=== PATIENT | male | born 1925 | race Caucasian/White ===

== ENCOUNTER 2016-09-28 22:01 | Inpatient (IN) | payer OTHER ==
[2016-09-28] MEDS ORDERED: EPINEPHrine 1 MG/10 ML SYR IVP ONE ×6 (22:06→23:30)
[2016-09-28] MEDS ORDERED: ATROPINE SULFATE 1 MG/ML VIAL IVP ONE (22:15)
--- NOTE | 2016-09-28 22:25 | EDPHY ---
H & P - Personal History Tetanus Vaccine Date: unsure of date but knows he's had it. - Medical/Surgical History Hx Asthma: No Hx Chronic Respiratory Disease: No Hx Diabetes: No Hx Cardiac Disease: Yes Hx Renal Disease: No Hx Cirrhosis: No Hx Alcoholism: No Hx HIV/AIDS: No Hx Splenectomy or Spleen Trauma: No Other PMH: CAD, CABG, CVA - Social History Smoking Status: Never smoked Time Seen by Provider: 09/28/16 22:02 HPI/ROS: CHIEF COMPLAINT: Unresponsive, cardiac arrest. HISTORY OF PRESENT ILLNESS: This patient is a 89 year old male arriving by private vehicle with his son who reports that he became acutely unresponsive while driving home. His family initially believed that he was sleeping and heard sounds of labored breathing that they attributed to snoring. They drove him immediately to the ED upon realizing that he was unresponsive. Medical history includes coronary artery disease with bypass surgery. Patient is full code. REVIEW OF SYSTEMS: Unobtainable secondary to the patient being unresponsive (Charlie Rivera) - Physical Exam Exam: Physical exam: Gen: Unresponsive, pulseless, apneic HEENT: Eyes: Dilated and minimally responsive Mouth: Moist mucosa Neck: no JVD Chest: Apneic Heart: Heart tones as an Abd: Soft, non-tender, no guarding Ext: no edema, non-tender Skin: no rash Neuro: Unresponsive, GCS 3 (Charlie Rivera) Constitutional: Initial Vital Signs Temperature (C) 32.9 C L 09/28/16 22:04 O2 Delivery Mode Ventilator O2 (L/minute) 100 Allergies/Adverse Reactions: ezetimibe [From Zetia] Allergy (Verified 02/24/14 20:01) affected liver Dhgloro-Adm-Gpe Reductase Inhibitor Allergy (Verified 02/24/14 20:01) aching muscles Home Medications: Medication Instructions Recorded Ascorbic Acid [Vitamin C 500 mg 500 mg PO DAILY 11/13/12 (*)] Clopidogrel Bisulfate [Plavix (*)] 75 mg PO DAILY 11/13/12 Multivitamins [Multivitamin (*)] 1 each PO HS 11/13/12 Tamsulosin HCl [Flomax 0.4 MG (*)] 0.4 mg PO HS 02/24/14 C/E/Zn/Cu/OM3/DHA/EPA/LUT/ZEAX 1 each PO BID 09/03/15 [Preservision Areds 2 Softgel] Carbidopa/Levodopa 25/100Mg 1 tab PO TID 09/29/16 [Sinemet 25/100 MG (*)] Cholecalciferol (Vitamin D3) 3,000 unit PO DAILY 09/29/16 [Vitamin D3] Denosumab [Prolia] 60 mg SQ .2X YEAR 09/29/16 Herbals/Supplements -Info Only 1 ea PO DAILY 09/29/16 Metoprolol Succinate 50 mg PO DAILY 09/29/16 Medical Decision Making - Diagnostics EKG Interpretation: ECG: Acute anterior STEMI with marked ST elevations prostate precordium. (Charlie Rivera) Procedures: Procedure: Central line placement. Indication: Cardiac arrest. Verbal informed consent was not obtained secondary to clinical urgency. Full maximal sterile barrier technique was uses including cap, gown, sterile gloves, large sheet, hand washing and chlorhexidine prep. The area anesthetized with 1 % lidocaine. The right femoral vein was punctured with a 19 gauge finder needle , then a 7 Sudanese triple-lumen catheter was placed using standard Seldinger technique. There were no complications. Blood return low pressure, dark blood. The procedure was performed by myself. Procedure: Limited transthoracic echocardiogram. A limited transthoracic echocardiogram was performed and interpreted by myself for cardiac arrest. Limited transthoracic echocardiogram: The pericardium was visualized and found to be negative for pericardial fluid. Cardiac activity was limited but present. The procedure was interpreted and performed by myself, Dr. Juan Rivera. (Charlie Rivera) Procedure: Rapid sequence intubation. Indication for the procedure was cardiac arrest, respiratory failure. The patient was preoxygenated with 100% oxygen by face mask. The patient was orally endotracheally intubated under direct visualization with a 7.5 ETT. In line stabilization was performed during the procedure. Tracheal intubation was confirmed with misting on the tube; breath sounds were auscultated equally bilaterally; appropriate color change with [place] Tidal CO2 detector. Chest X-ray shows ETT in good position. The procedure was performed by myself, Dr. Fontaine. (Martha Fontaine) ED Course/Re-evaluation: 2203: Contractions started. Placed on quality assurance monitor chassis. Respiratory therapy called. Pulse ox obtained. No pulses, no blood pressure. 2204: RT at bedside. Son at bedside. BVM in place. 1 amp epinephrine administered. 2206: Contractions stopped. Patient breathing on his own. 2207: CPR resumed. Additional 1 amp epinephrine administered. 220: Contractions paused for intubation. Intubation performed by Dr. Fontaine. 2210: CPR resumed. at bedside. 2212: Contractions paused. Bedside ultrasound performed by Dr. Rivera. Cardiac activity on ultrasound with minimal squeeze. No pulses present. 2213: CPR resumed. Additional 1 amp of epinephrine administered. 2214: Contractions paused. No pulses present. CPR resumed. 2215: 1mg atropine administered. 2217: Contractions paused. Bedside ultrasound reveals cardiac activity. Weak pulses. 2218: CPR resumed. 2220: Pulse check reveals femoral and carotid pulses. Will proceed with establishment of peripheral lines and blood draws. Cardiology paged. Radiology paged for portable chest x-ray. 2224: IV established. 1L IV NS administered. 2225: X-ray at bedside. 2227: 100mcg IV epinephrine administered. 2228: Consultation with Dr. Zohaib Diop, cardiology. Consultation with Dr. 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 22:45 attempted placement of a cooling catheter in the left femoral. Initial attempt showed good blood return under ultrasound guidance. Has unable to pass the guidewire. This was re-attempted with evidence of vena puncture on ultrasound but unable to draw bloods. After discussion with Dr. Bennett the plan will be for the line to be placed in the cath lab tech. Continuing to attempt to do so at this time will delayed the patient going to the cath lab tech. I am in agreement with this.: Catheter to be placed under fluoroscopy in the cath lab tech. 23:10 patient to cath lab tech (Charlie Rivera) Critical Care Time: I spent a total of 40 minutes of critical care time in obtaining history, performing a physical exam, bedside monitoring of interventions, collecting and interpreting tests and discussion with consultants but not including time spent performing procedures. (Charlie Rivera) - Data Points Laboratory Results: Laboratory Results 09/28/16 22:19 09/28/16 22:19 09/28/16 22:19 Smear Review By Natasha KUMAR MD Medications Given: Discontinued Medications Aspirin Buffered (Aspirin Ec) 325 mg PO DAILY FEDE Stop: 03/28/17 08:59 Last Admin: 09/29/16 13:11 Dose: Not Given Atropine Sulfate (Atropine Sulfate) 1 mg IVP EDNOW ONE Stop: 09/28/16 22:16 Last Admin: 09/28/16 22:15 Dose: 1 mg Clopidogrel Bisulfate (Plavix) 600 mg PO ONCE ONE Stop: 09/29/16 00:38 Last Admin: 09/29/16 01:36 Dose: 600 mg Epinephrine HCl (Epinephrine) 1 mg IVP EDNOW ONE Stop: 09/28/16 22:07 Last Admin: 09/28/16 22:06 Dose: 1 mg Epinephrine HCl (Epinephrine) 1 mg IVP EDNOW ONE Stop: 09/28/16 22:09 Last Admin: 09/28/16 22:08 Dose: 1 mg Epinephrine HCl (Epinephrine) 1 mg IVP EDNOW ONE Stop: 09/28/16 22:14 Last Admin: 09/28/16 22:13 Dose: 1 mg Epinephrine HCl (Epinephrine) 1 mg IVP EDNOW ONE Stop: 09/28/16 22:32 Last Admin: 09/28/16 22:31 Dose: 1 mg Epinephrine HCl (Epinephrine) 0.1 mg IVP EDNOW ONE Stop: 09/28/16 23:27 Last Admin: 09/28/16 22:28 Dose: 0.1 mg Fentanyl (Sublimaze) 50 mcg IVP ONCE ONE Stop: 09/29/16 01:01 Last Admin: 09/29/16 04:30 Dose: Not Given Norepinephrine 4 mg/ Dextrose 500 mls @ 0 mls/hr IV CONT FEDE; Titrate PRN Reason: Protocol Stop: 03/27/17 22:29 Last Admin: 09/29/16 10:51 Dose: 500 mls Amiodarone HCl (Amiodarone Hcl) 200 mls @ 33.333 mls/hr IV CONT FEDE Stop: 09/29/16 07:00 Last Admin: 09/29/16 02:25 Dose: 200 mls Amiodarone HCl 300 mg/ (Dextrose) 106 mls @ 318 mls/hr IV ONCE ONE Stop: 09/29/16 00:56 Last Admin: 09/29/16 04:06 Dose: Not Given Sodium Chloride (Ns) 1,000 mls @ 0 mls/hr IV ONCE ONE PRN Reason: Wide Open Stop: 09/29/16 01:01 Last Admin: 09/29/16 04:07 Dose: Not Given Potassium Chloride (Potassium Cl 10 Meq (Premix)) 50 mls @ 50 mls/hr IV Q1 FEDE Stop: 09/29/16 12:59 Last Admin: 09/29/16 10:50 Dose: 50 mls Potassium Chloride (Potassium Cl 10 Meq (Premix)) 50 mls @ 50 mls/hr IV ONCE ONE Stop: 09/29/16 10:59 Last Admin: 09/29/16 10:25 Dose: 50 mls Potassium Chloride (Potassium Cl 20 Meq (Premix)) 50 mls @ 50 mls/hr IV Q1H FEDE Stop: 09/29/16 15:29 Last Admin: 09/29/16 14:37 Dose: 50 mls Methylnaltrexone [place] (Relistor) 12 mg SC ONCE ONE Stop: 09/29/16 10:42 Last Admin: 09/29/16 13:11 Dose: Not Given Sodium Bicarbonate (Sodium Bicarbonate) 50 meq IVP ONCE ONE Stop: 09/29/16 14:44 Last Admin: 09/29/16 15:09 Dose: 50 meq Sodium Bicarbonate (Sodium Bicarbonate) 50 meq IV ONCE ONE Stop: 09/29/16 16:01 Last Admin: 09/29/16 17:27 Dose: Not Given Departure - Departure Disposition: [facility] Inpatient Acute Clinical Impression: Cardiac arrest, STEMI (ST elevation myocardial infarction) Condition: Critical Report Scribed for: Charlie Rivera Report Scribed by: Lorna Matta Date of Report: 09/28/16 Time of Report: 22:25
--- NOTE | 2016-09-28 22:32 | CPEKG ---
Heart Rate: 118 RR Interval: 508 QRSD Interval: 122 QT Interval: 400 QTC Interval: 561 QRS [place]: -56 T Wave [place]: 119 EKG Severity - ABNORMAL ECG - EKG Impression: ATRIAL FIBRILLATION, V-RATE 75-143 EKG Impression: NONSPECIFIC IVCD WITH LAD EKG Impression: LVH WITH SECONDARY REPOLARIZATION ABNORMALITY EKG Impression: ANTERIOR INJURY, EARLY ACUTE INFARCT Electronically Signed By: Charlie Rivera 29-Sep-2016 07:10:20
[2016-09-28] MEDS: NOREPINEPHRINE BITARTRATE 4 MG in D5W 500 ML IV SCH (22:38)
[2016-09-28 22:43] LABS: ABSOLUTE NRBC COUNT 0.06 10^3/uL (0-0.01); ADD DIFF? YES; ADD MORPH? NO; ADD SCAN? NO; ATYPICAL LYMPHOCYTE FLAG 10 (0-99); FRAGMENT RBC FLAG 0 (0-99); HEMATOCRIT 42.2 % (40.0-51.0); HEMOGLOBIN 12.9 g/dL (13.7-17.5); LEFT SHIFT FLG 30 (0-99); LIPEMIA HEMOLYSIS FLAG 80 (0-99); MEAN CELL HEMOGLOBIN 28.3 pg (27.9-34.1); MEAN CELL HEMOGLOBIN CONCENTR. 30.6 g/dL (32.4-36.7); MEAN CELL VOLUME 92.5 fL (81.5-99.8); MEAN PLATELET VOLUME 9.2 fL (8.7-11.7); NRBC-AUTO% 0.6 % (0.0-0.2); PLATELET CLUMPS FLAG 20 (0-99); PLATELET COUNT 229 10^3/uL (150-400); RED BLOOD CELL COUNT 4.56 10^6/uL (4.40-6.38)
[2016-09-28 22:52] LABS: ANION GAP 18 mEq/L (8-16); CALCIUM 9.5 mg/dL (8.5-10.4); CARBON DIOXIDE 16 mEq/l (22-31); CHLORIDE 107 mEq/L (97-110); CREATININE 1.9 mg/dL (0.7-1.3); GLOMERULAR FILTRATION RATE 34; GLUCOSE 179 mg/dL (70-100); POTASSIUM 4.9 mEq/L (3.5-5.2); SODIUM 141 mEq/L (134-144)
[2016-09-28] MEDS ORDERED: LIDOCAINE 1% 30 ML SDV ONE (23:01)
[2016-09-28] MEDS ORDERED: BIVALIRUDIN 250 MG/5 ML VIAL IV ONE (23:01)
[2016-09-28] MEDS ORDERED: fentaNYL 100 MCG/2 ML INJ ONE (23:01)
[2016-09-28] MEDS ORDERED: MIDAZOLAM 2 MG/2 ML VIAL ONE (23:01)
[2016-09-28] MEDS ORDERED: IOPAMIDOL (ISOVUE-370) 150 ML BTL IV ONE (23:02)
[2016-09-28 23:03] LABS: TROPONIN I 0.019 ng/mL (0-0.034)
[2016-09-28 23:29] LABS: HYPOCHROMIA 1+; PLATELET ESTIMATE ADEQUATE (ADEQ)
[2016-09-28] MEDS ORDERED: ATROPINE SULFATE 1 MG/10 ML SYR ONE (23:30)
[2016-09-28] MEDS ORDERED: VERAPAMIL 5 MG/2 ML VIAL ONE (23:38)
[2016-09-28 23:40] LABS: BASE EXCESS -18.6 mEq/L (-2.5-2.5); BICARBONATE 12 mEq/L (22-26); MEASURED OXYGEN SATURATION 98 % (92-95); PCO2 44 mmHg (34-38); PO2 275 mmHg (65-75); TCO2 13 mEq/L (23-27)
[2016-09-28 23:43] LABS: SIMV YES
[2016-09-28 23:44] LABS: O2 CONCENTRATIION 100 % (0-100); P/F RATIO 275 RATIO; PATIENT RATE 18
[2016-09-28] MEDS ORDERED: SODIUM BICARBONATE 50 MEQ/50 ML SYR ONE (23:56)
[2016-09-29] MEDS ORDERED: AMIODARONE HCL 150 MG/100 ML BAG (1.5 MG/ML) IV ONE ×2 (00:04→00:07)
[2016-09-29 00:11] LABS: BASE EXCESS -12.3 mEq/L (-2.5-2.5); BICARBONATE 15 mEq/L (22-26); HEMOGLOBIN ABG 10.6 gm/dL (14.5-17.3); IONIZED CALCIUM 1.13 MMOL/L (1.12-1.30); MEASURED OXYGEN SATURATION 99 % (92-95); PCO2 39 mmHg (34-38); PO2 390 mmHg (65-75); SODIUM ABG 137 mEq/L (137-146); TCO2 16 mEq/L (23-27)
[2016-09-29 00:16] LABS: O2 CONCENTRATIION 100 % (0-100); P/F RATIO 390 RATIO; PATIENT RATE 24; SIMV YES
[2016-09-29] MEDS ORDERED: SODIUM BICARBONATE 50 MEQ/50 ML SYR ONE (00:26)
[2016-09-29] MEDS ORDERED: PROTOCOL MAGNESIUM 1 DOSE IV PRN ×2 (00:37→01:00)
[2016-09-29] MEDS ORDERED: ATROPINE SULFATE 1 MG/10 ML SYR IVP PRN (00:37)
[2016-09-29] MEDS ORDERED: CLOPIDOGREL BISULFATE 75 MG TAB PO ONE (00:37)
[2016-09-29] MEDS ORDERED: PROTOCOL POTASSIUM 1 DOSE MISC PRN ×2 (00:37→01:00)
[2016-09-29] MEDS ORDERED: ONDANSETRON 4 MG/2 ML VIAL IVP PRN (00:37)
[2016-09-29] MEDS ORDERED: LORazepam 2 MG/ML INJ IVP PRN (00:37)
[2016-09-29] MEDS ORDERED: AMIODARONE HCL 300 MG in D5W 100 ML IV ONE (00:37)
[2016-09-29] MEDS ORDERED: CLOPIDOGREL BISULFATE 75 MG TAB ONE (00:42)
[2016-09-29] MEDS ORDERED: NS 1,000 ML IV SCH ×2 (00:45→01:00)
[2016-09-29] MEDS ORDERED: fentaNYL/NACL 100 ML IV SCH (01:00)
[2016-09-29] MEDS ORDERED: MIDAZOLAM HCL 50 MG in D5W 50 ML IV PRN (01:00)
[2016-09-29] MEDS ORDERED: NS 1,000 ML IV ONE (01:00)
[2016-09-29] MEDS ORDERED: SODIUM CHLORIDE IV SCH (01:00)
[2016-09-29] MEDS ORDERED: fentaNYL 100 MCG/2 ML INJ IVP ONE (01:00)
[2016-09-29] MEDS ORDERED: FENTANYL 1000 MCG IV SCH (01:00)
[2016-09-29] MEDS ORDERED: niCARdipine/NACL 200 ML IV PRN (01:00)
[2016-09-29] MEDS ORDERED: MIDAZOLAM 2 MG/2 ML VIAL IVP PRN (01:00)
[2016-09-29] MEDS ORDERED: NOREPINEPHRINE BITARTRATE 4 MG in D5W 500 ML IV PRN (01:00)
[2016-09-29] MEDS ORDERED: NS 250 ML IV PRN (01:00)
[2016-09-29] MEDS ORDERED: D50W 25 GM/50 ML SYR IVP PRN (02:00)
[2016-09-29] MEDS ORDERED: D5W 1,000 ML IV SCH (02:00)
[2016-09-29] MEDS: AMIODARONE HCL 200 ML IV SCH ×4 (02:00→22:22)
[2016-09-29 02:02] LABS: BASE EXCESS -11.9 mEq/L (-2.5-2.5); BICARBONATE 15 mEq/L (22-26); IONIZED CALCIUM 1.17 MMOL/L (1.12-1.30); MEASURED OXYGEN SATURATION 98 % (92-95); PCO2 38 mmHg (34-38); PO2 136 mmHg (65-75); TCO2 16 mEq/L (23-27)
[2016-09-29 02:21] LABS: MIXED VENOUS O2 SATURATION 71 % (65-75)
[2016-09-29] MEDS: PROPOFOL/EMULSION 100 ML IV SCH ×2 (02:24→21:27)
[2016-09-29] MEDS: VECURONIUM BROMIDE 50 MG in D5W 50 ML IV SCH ×3 (02:25→21:09)
[2016-09-29 02:35] LABS: ALBUMIN 2.7 g/dL (3.5-5.0); ANION GAP 17 mEq/L (8-16); ASPARTATE AMINOTRANSFERASE 650 IU/L (17-59); CARBON DIOXIDE 16 mEq/l (22-31); CHLORIDE 105 mEq/L (97-110); CREATININE 1.8 mg/dL (0.7-1.3); FIBRINOGEN 236 mg/dL (214-456); GLOMERULAR FILTRATION RATE 36; GLUCOSE 248 mg/dL (70-100); MAGNESIUM 2.3 mg/dL (1.6-2.3); POTASSIUM 4.3 mEq/L (3.5-5.2); SODIUM 138 mEq/L (134-144)
[2016-09-29 02:46] LABS: PROTIME(PATIENT) 58.7 SEC (12.0-15.0)
[2016-09-29 02:47] LABS: CK-MB INTERPRETATION POSITIVE (NEGATIVE)
[2016-09-29 02:48] LABS: PHENCYCLIDINE URINE BCH < 6 ng/ml (NEGATIVE); PHENCYCLIDINE URINE BCH NEGATIVE (NEGATIVE); TETRAHYDROCANNABINOL URINE < 5 ng/mL (NEGATIVE); TETRAHYDROCANNABINOL URINE NEGATIVE (NEGATIVE)
[2016-09-29 02:54] LABS: INR 6.52 (0.83-1.16)
[2016-09-29] MEDS ORDERED: SODIUM BICARBONATE 150 MEQ in D5W 1,000 ML IV SCH ×2 (03:35→16:30)
[2016-09-29] MEDS ORDERED: PETROLAT,WHT/MIN OIL/SOD CHL 3.5 GM OPHT.OINT EACHEYE PRN (04:00)
[2016-09-29 04:03] LABS: INR 3.79 (0.83-1.16)
--- NOTE | 2016-09-29 04:27 | CPIP ---
DATE OF PROCEDURE: 09/28/2016 INDICATION: 89-year-old man with resuscitated cardiac arrest and evidence for SM-nbxwvsu-pqycxqhao myocardial infarction, previous bypass surgery, and known graft failure. PROCEDURES PERFORMED: 1. Right and left heart catheterization, with left ventricular, selective coronary and saphenous ve in graft angiography. 2. Placement of intra-aortic balloon pump. 3. Percutaneous intervention with placement of 3 overlapping drug-eluting stents in saphenous vein graft to left anterior descending coronary artery. 4. Placement of HACA venous access catheter in the left femoral vein. 5. Placement of oximetric Unity-Baltazar catheter via right femoral vein. 6. DC synchronized cardioversion x2. DESCRIPTION: The patient was in the emergency department, having been brought in with pulseless simeon ctrical activity and intermittent asystole, and had return of spontaneous circulation, following CPR and ACLS. EKG demonstrated atrial fibrillation with ST-segment elevation consistent with anterior myocardial infarction. The patient had been in reasonably good health for his age prior to this. C ardiac alert/consultation was called. I discussed the findings and prognosis with the and son. Risks, benefits, and alternatives were discussed, and informed consent was obtained. The family f elt that given the uncertain prognosis and the patient's relatively good health prior to this acute event, that for the time being, maximal effort at caring for the patient should be undertaken. Ther efore, the patient was brought to the catheterization laboratory where both groins were sterilely pr epped and draped. Patient did have a triple-lumen that was placed in the right femoral vein inferio rly in the ER by the emergency room physician. Both groins were anesthetized with lidocaine. A 7-F rench hemostatic sheath was placed in the right femoral artery and 6-Filipino sheath in the right femo ral vein utilizing modified Seldinger technique. An 8-Filipino intra-aortic balloon pump sheath was p laced in the left femoral artery utilizing modified Seldinger technique. Due to ongoing hypotension , requiring high-dose epinephrine, a 40 cc intra-aortic balloon pump was placed via the left femoral artery. Previous angiograms had been reviewed. It appeared to me as though the likely culprit les ion was going to be the saphenous vein graft to the LAD. Therefore, our initial catheter for angiog italo was a 7-Filipino LCB catheter. This was engaged into the vein graft to the LAD and, indeed, thi s was the culprit lesion with long subtotal occlusion and slow antegrade flow. Angiomax was adminis tered. Prowater J guidewire was placed out distally, and a 4 x 32 mm Synergy stent was placed to co alejandro the main lesion to 16 and then 18 atmospheres. Angiography showed significant improvement in fl ow, but a persistent lesion distal to the stent. Therefore, a second stent, which was a 4 x 24 mm S ynergy drug-eluting stent was placed in an overlapping fashion to 18 and 20 atmospheres. Low-dose i ntragraft verapamil was administered and angiography was performed. Wire was removed and when ortho gonal angiogram was performed, it became clear that there was still a more proximal lesion at the os tium of the graft. Therefore, the Prowater J-wire was placed distally again, and a 4 x 16 mm Synerg y stent was placed in a proximal overlapping fashion to 20 atmospheres. Again, verapamil was admini stered and orthogonal angiography was then performed. At this point, further angiography was performed on other vessels. An RCB 6-Filipino diagnostic prem ter was used to engage the saphenous vein graft to the right coronary artery/PDA. A 6-Filipino JL4 ca theter was utilized for orthogonal angiograms of the [place] left system. Later in the procedure, a pigtail catheter was utilized for left heart catheterization and left ventricular angiogram, using a limited amount of contrast. Attention was then turned to placing the HACA catheter in the left femoral vein. An attempt had bee n made by the emergency room physician, but there was difficulty with passing the guidewire. I had the same difficulty, and venography was performed via a 6-Filipino dilator showing that the wire kept passing into a large branch iliac vein. Therefore, under fluoroscopy, the wire was placed into the inferior vena cava and the multi-lumen HACA catheter was placed without difficulty. Of note, due to hypotension, the patient had been cardioverted once. It was unclear how long he had been in atrial fibrillation. Last EKG, in the hospital chart, showed sinus rhythm from last year. We also began amiodarone bolus and drip. A second cardioversion was performed later in the procedure, but patient did not maintain sinus rhythm. At this point, oximetric Unity-Baltazar catheter was placed. The 6-Filipino venous sheath on the right was exchanged for an 8.5-Filipino sheath, and the oximetric Unity-Baltazar catheter was placed. Saturations w ere obtained. The mixed venous saturation was quite high. Therefore, a right atrial saturation was also obtained to rule out VSD (even though the hemodynamics did not suggest VSD), and this saturati on was also high. At this point in time, all catheters were secured in place and patient was sent t o the ICU in critical condition. FINDINGS: HEMODYNAMICS: Initial arterial pressure in the aorta 61/36, mean of 42. Later in the pr ocedure, 82/40, mean of 55. This was following reperfusion. Right atrial mean pressure of 17, right ventricular pressure of 47/16, end-diastolic pulmonary arter y pressure 45/25, mean of 33. Pulmonary capillary wedge pressure mean of 21, without significant V- wave. Left ventricular pressure 73/21, end-diastolic without pullback gradient across the aortic va lve. SATURATIONS: Main pulmonary artery 89%. Right atrium 90%. Right femoral artery 98%. Assumed Amy cardiac output 16 L/min, with a cardiac index of 8.9 L/min per squared m. LEFT VENTRICLE: The left ventricle is normal in size and shape. There is mild anterior wall hypoki nesis following reperfusion. Ejection fraction is at least 50%. There are no filling defects or si gnificant mitral regurgitation noted. ANGIOGRAPHY: Left main: The left main is a large bifurcating vessel with severe distal disease, un changed from 2012. Circumflex: The circumflex is nondominant and totally occluded proximally with bridging collaterals to a severely diseased obtuse marginal and small posterolateral. These only fill minimally and are not changed from 2012. The graft to the circumflex system is known to be occluded. Left anterior descending: The left anterior descending gives rise to a large, severely diseased, di agonal branch. 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 The graft, which I believe is the BECKFORD graft to this diagonal, is totally occluded. The diagonal fills by antegrade filling a nd is unchanged from 2012. The distal LAD fills via the vein graft. This vessel is severely diseas ed distal to the graft anastomosis and also proximal to the graft anastomosis, where it retrofills i nto a second substantial diagonal branch. There is at least 70% disease in the LAD beyond the graft anastomosis. Right coronary artery: The right coronary is known to be totally occluded proximally. This fills v ia the vein graft. The right coronary is dominant and consists of a large posterior descending and large multibranching posterolateral. The vein graft anastomosed to the mid PDA. There are also rubio e evrcq-gy-rleg collaterals, mainly to the circumflex system. GRAFT ANGIOGRAPHY: The saphenous vein graft to the right coronary has diffuse proximal disease, but is widely patent. The saphenous vein graft to the left anterior descending has proximal subtotal o cclusion over a relatively long segment with slow antegrade flow (CHERIE grade 2). PERCUTANEOUS INTERVENTION: Following placement of 3 drug-eluting stents in an overlapping fashion, there is an excellent result in the vein graft to the LAD with restored normal antegrade flow, with no residual stenosis. OVERALL IMPRESSION: 1. Severe hypotension post arrest and likely cardiogenic shock, treated with pressors and intra-aor tic balloon pump. 2. Acute myocardial infarction due to vein graft failure in the left anterior descending to sapheno us vein graft as described above. Successfully treated with 3 overlapping drug-eluting stents in th e proximal graft with excellent result. 3. Patency of right coronary artery vein graft with diffuse proximal disease of this graft. 4. 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 5. Severe [place] 3-vessel coronary artery disease including left main disease. 6. Successful placement of intra-aortic balloon pump. 7. Successful placement of HACA catheter. 8. Moderate pulmonary hypertension and elevation of filling pressures. 9. Status post cardiac arrest. 10. Status post cardioversion of atrial fibrillation attempt x2, ultimately unsuccessful. PLAN: 1. ICU admission. 2. HACA protocol. 3. Maximal supportive care. 4. Dual anti-platelet therapy. Patient already on aspirin and Plavix. 5. Echocardiography CELIO. 6. Treat metabolic acidosis (patient did receive bicarbonate 2 amps in the procedure). 7. Patient prognosis is guarded. This was discussed at length with the family. /[id number]/MODL
--- NOTE | 2016-09-29 04:45 | CPEKG ---
Heart Rate: 65 RR Interval: 923 P-R Interval: 180 QRSD Interval: 102 QT Interval: 456 QTC Interval: 475 P [place]: 41 QRS [place]: 89 T Wave [place]: -86 EKG Severity - ABNORMAL ECG - EKG Impression: SINUS RHYTHM EKG Impression: BORDERLINE RIGHT AXIS DEVIATION EKG Impression: NONSPECIFIC REPOL ABNORMALITY, DIFFUSE LEADS Electronically Signed By: Jv Johnson 29-Sep-2016 21:05:11
[2016-09-29 05:26] LABS: % IMMATURE GRANULYOCYTES 0.5 % (0.0-1.1); ABSOLUTE IMMATURE GRANULOCYTES 0.11 10^3/uL (0.00-0.10); ADD DIFF? NO; ADD MORPH? NO; ADD SCAN? NO; ATYPICAL LYMPHOCYTE FLAG 0 (0-99); FRAGMENT RBC FLAG 0 (0-99); HEMATOCRIT 36.4 % (40.0-51.0); HEMOGLOBIN 11.9 g/dL (13.7-17.5); LEFT SHIFT FLG 70 (0-99); LIPEMIA HEMOLYSIS FLAG 80 (0-99); MEAN CELL HEMOGLOBIN 28.4 pg (27.9-34.1); MEAN CELL HEMOGLOBIN CONCENTR. 32.7 g/dL (32.4-36.7); MEAN CELL VOLUME 86.9 fL (81.5-99.8); MEAN PLATELET VOLUME 9.2 fL (8.7-11.7); PLATELET CLUMPS FLAG 0 (0-99); PLATELET COUNT 215 10^3/uL (150-400); RED BLOOD CELL COUNT 4.19 10^6/uL (4.40-6.38); RED CELL DISTRIBUTION WIDTH 15.5 % (11.5-15.2)
[2016-09-29 06:01] LABS: ALANINE AMINOTRANSFERASE 154 IU/L (21-72); ALBUMIN 2.7 g/dL (3.5-5.0); ALKALINE PHOSPHATASE 216 IU/L (38-126); ANION GAP 17 mEq/L (8-16); ASPARTATE AMINOTRANSFERASE 692 IU/L (17-59); BILIRUBIN,TOTAL 0.7 mg/dL (0.1-1.4); BILIRUBIN-CONJUGATED 0.6 mg/dL (0.0-0.5); BILIRUBIN-UNCONJUGATED 0.1 mg/dL (0.0-1.1); CARBON DIOXIDE 15 mEq/l (22-31); CHLORIDE 107 mEq/L (97-110); CHOLESTEROL 103 mg/dL (140-220); CHOLESTEROL/HDL RATIO 3.12 RATIO (1.00-4.97); CREATININE 1.9 mg/dL (0.7-1.3); GLOMERULAR FILTRATION RATE 34; GLUCOSE 294 mg/dL (70-100); HIGH DENSITY LIPOPROTEIN 33 mg/dL (40-65); LDL/HDL RATIO 1.42 RATIO (1.00-3.64); LOW DENSITY LIPOPROTEIN 47 mg/dL (80-100); MAGNESIUM 2.3 mg/dL (1.6-2.3); NON-HIGH DENSITY LIPOPROTEIN 70 mg/dL (90-129); POTASSIUM 3.3 mEq/L (3.5-5.2); SODIUM 139 mEq/L (134-144); TOTAL PROTEIN 5.5 g/dL (6.3-8.2); TRIGLYCERIDE 115 mg/dL (40-150); VERY LOW DENSITY LIPOPROTEINS 23 mg/dL (8-25)
[2016-09-29 06:37] LABS: LACTATE DEHYDROGENASE 4016 IU/L (313-618)
[2016-09-29 07:35] LABS: BASE EXCESS -11.6 mEq/L (-2.5-2.5); BICARBONATE 14 mEq/L (22-26); MEASURED OXYGEN SATURATION 94 % (92-95); PCO2 32 mmHg (34-38); PO2 82 mmHg (65-75); TCO2 15 mEq/L (23-27)
[2016-09-29 07:38] LABS: END TIDAL CO2 21; O2 CONCENTRATIION 60 % (0-100); P/F RATIO 137 RATIO; PRESSURE SUPPORT 7; SIMV YES
[2016-09-29] MEDS ORDERED: ASPIRIN EC 325 MG TAB PO SCH (09:00)
[2016-09-29 09:54] LABS: POTASSIUM 2.7 mEq/L (3.5-5.2)
[2016-09-29] MEDS ORDERED: POTASSIUM Cl (KCl) 50 ML IV ONE ×2 (10:00→21:06)
[2016-09-29] MEDS: POTASSIUM Cl (KCl) 50 ML IV SCH ×7 (10:25→18:39)
[2016-09-29] MEDS ORDERED: METHYLNALTREXONE BROMIDE 12 MG/0.6 ML INJ SC ONE (10:41)
[2016-09-29] MEDS: NOREPINEPHRINE BITARTRATE 4 MG in D5W 500 ML IV SCH (10:51)
[2016-09-29] MEDS: NOREPINEPHRINE BITARTRATE 4 MG in D5W 500 ML IV PRN ×2 (10:52→21:09)
[2016-09-29] MEDS: FENTANYL 1000 MCG IV SCH ×2 (10:53→21:09)
[2016-09-29] MEDS: SODIUM CHLORIDE IV SCH ×2 (10:53→21:09)
[2016-09-29] MEDS: INSULIN REGULAR HUMAN 100 UNIT in NS 100 ML IV SCH ×2 (10:53→21:50)
[2016-09-29] MEDS ORDERED: PROPOFOL/EMULSION 1,000 MG/100 ML BOTTLE IV ONE (10:59)
[2016-09-29] MEDS: ASPIRIN RECTAL 300 MG SUPP PR SCH ×2 (11:00→11:06)
[2016-09-29 12:03] LABS: BASE EXCESS -13.3 mEq/L (-2.5-2.5); BICARBONATE 13 mEq/L (22-26); MEASURED OXYGEN SATURATION 92 % (92-95); PCO2 35 mmHg (34-38); PO2 75 mmHg (65-75); TCO2 14 mEq/L (23-27)
[2016-09-29 12:07] LABS: P/F RATIO 125 RATIO; PATIENT RATE 24; PIP 29.2; PRESSURE SUPPORT 7; SIMV YES
[2016-09-29 12:08] LABS: O2 CONCENTRATIION 60 % (0-100)
[2016-09-29 12:16] LABS: IONIZED CALCIUM 1.09 MMOL/L (1.12-1.30)
[2016-09-29 12:19] LABS: ALBUMIN 2.3 g/dL (3.5-5.0); ANION GAP 15 mEq/L (8-16); ASPARTATE AMINOTRANSFERASE 468 IU/L (17-59); CALCIUM 7.4 mg/dL (8.5-10.4); CARBON DIOXIDE 15 mEq/l (22-31); CHLORIDE 102 mEq/L (97-110); CREATININE 1.9 mg/dL (0.7-1.3); GLOMERULAR FILTRATION RATE 34; GLUCOSE 352 mg/dL (70-100); MAGNESIUM 1.9 mg/dL (1.6-2.3); POTASSIUM 3.2 mEq/L (3.5-5.2); SODIUM 132 mEq/L (134-144)
--- NOTE | 2016-09-29 12:21 | ECHO ---
[id number] + + [address] : : [place] [address] : : [phone] + Adult Echocardiographic Report + -------+ :Name: KRISTOFER ALVARADO NStudy Date: 09/29/2016 08:18 AM : : Hospital Admission Number: [id number] Locati on: 257: :: 1925 Gender: Male : :Age: 89 yrs Race: WH,White : :Reason For Study: AR/Arrest : :History: AR/ Arrest : + -------+ MMode/2D Measurements \T\ Calculations IVSd: 1.9 cm LVIDd: 4.3 cm FS: 20.6 % MV Diam: 2.0 cm LVPWd: 1.3 cm LVIDs: 3.4 cm EDV(Teich): 82.4 ml ESV(Teich): 47.5 ml EF(Teich): 42.3 % LVOT diam: 2.0 cm LVLd ap4: 5.7 cm SV(MOD-sp4): 22.0 ml EDV(MOD-sp4): 46.0 ml LVOT area: 3.0 cm2 LVLs ap4: 5.1 cm ESV(MOD-sp4): 24.0 ml EF(MOD-sp4): 47.8 % Normal Measurement Values: + + :LVIDd (3.5-5.7cm) IVSd (0.6-1.1cm) LVPWd (0.6-1.1cm) Aortic Root (2.0-3.7cm)Left Atrium (1.5-4.0cm): :LV Vol(d) (76-115ml) LV Vol(s) (29-48ml) Ejec Fraction (50-65%)PV Elieser (0.6- 1.2m/s) TV Elieser (0.4-1.0m/s) : :MV E Elieser (0.8-1.0m/s)MV A Elieser (0.3-1.0m/s)LVOT Elieser (0.7-1.2m/s) Asc Ao Elieser ( 0.9-1.8m/s) : + + Doppler Measurements \T\ Calculations MV E max elieser: MV V2 max: Ao V2 max: LV V1 mean P.0 cm/sec 84.5 cm/sec 120.8 cm/sec 2.1 mmHg MV A max elieesr: MV max P.9 mmHg Ao max PG: LV V1 mean: 73.1 cm/sec MV V2 mean: 5.8 mmHg 67.8 cm/sec MV E/A: 1.1 51.4 cm/sec Ao mean PG: LV V1 VTI: MV dec time: MV mean P.2 mmHg 3.8 mmHg 20.1 cm 0.23 sec MV V2 VTI: 28.8 cm Ao V2 mean: MV area (1 diam): 87.0 cm/sec 3.2 cm2 Ao V2 VTI: 20.2 cm MVA(VTI): 2.1 cm2 OTF(I,D): 3.0 cm2 MV Flow area(1diam): 3.2 cm2 MR max elieser: MR(RF 1 diam): SV(MV 1 diam): PA V2 max: 339.0 cm/sec 17.7 % 92.5 ml 77.6 cm/sec MR max PG: SV(LVOT): 60.0 ml PA max P.0 mmHg 2.4 mmHg PI end-d elieser: TR max elieser: RF(MV,LVOT) 130.3 cm/sec 358.3 cm/sec (1diam): 0.35 TR max P.4 mmHg Left Ventricle The left ventricle is normal in size. Proximal septal thickening is noted. Moderate concentiric LVEF. Ejection Fraction = 45-55%. There is Doppler evidence for diastolic dysfunction. Right Ventricle The right ventricle is mildly dilated. There is a catheter in the right ventricle. Mild to moderately reduced RVEF. Atria Moderate to severe LAE. No ASD or PFO noted. Mild PEREZ noted. Mitral Valve There is mild mitral annular calcification. There is no mitral valve stenosis. There is mild to moderate mitral regurgitation. Tricuspid Valve The tricuspid valve is normal in structure and function. There is no tricuspid stenosis. There is moderate tricuspid regurgitation. Aortic Valve Moderate Aortic Valve Calcification. There is no aortic stenosis. Mild AI noted. Pulmonic Valve The pulmonic valve is normal in structure and function. There is no pulmonic valvular stenosis. Mild pulmonic valvular regurgitation. Great Vessels The aortic root is normal size. Pericardium/Pleural No pericardial effusion noted. Conclusion A complete two-dimensional transthoracic echocardiogram was performed (2D, M-mode, Doppler and color flow Doppler). 1)Low normal LV systolic function with a LVEF of 45-50% with mild global hypokinesis. 2)Moderate concentric LVH with diastolic dysfunction. 3)Mild to moderately reduced RVEF. 4)Pacer wires noted in right heart chambers. 5)Moderate to severe left atrial and mild right atrial enlargement(s). 6)Aortic valve sclerosis without . Mild AI noted. 7)Mild to moderate MR without MV prolapse. 8)Moderate TR with estimated PAS 52mmHg consistent with moderate pulmonary HTN. 9)No pericardial effusion noted. Final Reading Physician: Jv Johnson electronically signed on 09/29/2016 12:20 PM Ordering Physician: CARMELLA DICKERSON Performed By: Casie Gu
[2016-09-29 12:25] LABS: % IMMATURE GRANULYOCYTES 0.4 % (0.0-1.1); ABSOLUTE IMMATURE GRANULOCYTES 0.05 10^3/uL (0.00-0.10); ADD DIFF? NO; ADD MORPH? NO; ADD SCAN? YES; ATYPICAL LYMPHOCYTE FLAG 0 (0-99); FRAGMENT RBC FLAG 0 (0-99); HEMATOCRIT 35.2 % (40.0-51.0); HEMOGLOBIN 11.2 g/dL (13.7-17.5); LIPEMIA HEMOLYSIS FLAG 80 (0-99); MEAN CELL HEMOGLOBIN 27.4 pg (27.9-34.1); MEAN CELL HEMOGLOBIN CONCENTR. 31.8 g/dL (32.4-36.7); MEAN CELL VOLUME 86.1 fL (81.5-99.8); MEAN PLATELET VOLUME 9.2 fL (8.7-11.7); PLATELET CLUMPS FLAG 0 (0-99); PLATELET COUNT 201 10^3/uL (150-400); RED BLOOD CELL COUNT 4.09 10^6/uL (4.40-6.38); RED CELL DISTRIBUTION WIDTH 15.5 % (11.5-15.2)
[2016-09-29 12:27] LABS: LEFT SHIFT FLG 100 (0-99)
[2016-09-29 12:29] LABS: INR 1.91 (0.83-1.16)
[2016-09-29 12:30] LABS: APTT 67.1 SEC (23.0-38.0)
[2016-09-29 12:46] LABS: SCAN POSITIVE
--- NOTE | 2016-09-29 12:47 | GCON ---
PULMONARY/CRITICAL CARE CONSULTATION DATE OF CONSULTATION: 09/29/2016 REFERRING PHYSICIAN: Charlie Bennett MD REASON FOR CONSULTATION: Evaluation and management of respiratory failure. HISTORY: The patient is an 89-year-old gentleman, who had dinner with his family yesterday evening. While driving home, they believed that he was sleeping but then realized that he was unresponsive, so brought him to the emergency department. His initial rhythms were PEA with some periods of asys tole. He had a total of 45 minutes of intermittent CPR during resuscitation with an intermittent, s pontaneous pulse during this time in response to drugs and CPR. He was then taken emergently to the catheterization lab by Juan Bennett, who found an occlusion of a previous bypass graft to the LAD, which was opened up with excellent result. A balloon pump was placed, and the patient was placed on the HACA protocol after he was intubated in the emergency department. The patient has been unrespo nsive since arriving in the ICU. PAST MEDICAL HISTORY: Coronary artery disease, status post CABG. MEDICATIONS ON ADMISSION: Include Plavix, Cozaar, Flomax, Tylenol, and metoprolol. ALLERGIES: Statins. SOCIAL HISTORY: The patient was brought in by his family. He never smoked and does not drink exces sively. FAMILY HISTORY: Unremarkable. REVIEW OF SYSTEMS: Unobtainable. PHYSICAL EXAMINATION: GENERAL: The patient is intubated, sedated, and on the HACA protocol. VITAL SIGNS: His blood pressure is 98/31 with a heart rate of 60. His temperature is 33 degrees on the H JOE protocol. HEENT: Normocephalic and atraumatic. No icterus. NECK: No JVD. Trachea is midlin e. CHEST: Clear to auscultation. CARDIAC: Regular rate and rhythm with an intraaortic balloon pu mp. ABDOMEN: Distended and somewhat tympanitic. Bowel sounds are absent. EXTREMITIES: No clubbi ng, cyanosis, or edema. LABORATORY: Potassium is 2.7 down from 4.3, creatinine is 1.9. AST is 692 with an ALT of 154. CP K is 506 with a 5.8% MB fraction. Troponin is 1.4. BNP is 3742. INR is 3.8, down from 6.5. Arter ial blood gas shows a pH of 7.26 with a pO2 of 82, a CO2 of 32, and a bicarbonate of 15 on IMV with a rate of 24, tidal volume of 550, and 60% oxygen. IMAGING: Chest x-ray shows interstitial shows alveolar and interstitial edema. Monitoring and supp ort devices are in appropriate position. The right diaphragm is elevated. Images reviewed. ASSESSMENT: 1. Status post out of hospital arrest. This is due to an acute myocardial infarction with occlusio n of a previous bypass graft that has subsequently been opened and kept patent with stents. The pat ient is medically stable, but requiring epinephrine and norepinephrine drips in order to maintain bl ood pressure. He is on the HACA protocol. 2. Respiratory failure. The patient is intubated due to his cardiac status, as well as the HACA pr otocol. 3. Metabolic acidosis. The patient has a persistent metabolic acidosis with partial respiratory co mpensation. This is likely to tissue ischemia at the time of his arrest. It is also possible that he has ongoing ischemia, possibly including mesenteric ischemia. 4. Hypokalemia. RECOMMENDATIONS: 1. Continue mechanical ventilation and HACA protocol. 2. Repeat blood gas, and adjust the ventilator and the patient's current bicarb drip in order to tr y to correct metabolic acidosis. 3. Follow potassium and replace as needed. Overall prognosis is guarded given the patient's age and prolonged resuscitation time. /[id number]/MODL
[2016-09-29 12:49] LABS: PLATELET ESTIMATE ADEQUATE (ADEQ)
[2016-09-29 12:57] LABS: CK-MB INTERPRETATION POSITIVE (NEGATIVE)
[2016-09-29] MEDS ORDERED: POTASSIUM Cl (KCl) 20 MEQ/50 ML BAG IV ONE (13:01)
--- NOTE | 2016-09-29 13:33 | GCON ---
INPATIENT CONSULTATION NOTE DATE OF CONSULTATION: 09/29/2016 CHIEF COMPLAINT: Suspected anoxic brain injury. HISTORY OF PRESENT ILLNESS: Dr. Bennett of the cardiology service consulted Neurology for evaluatio n of possible anoxic brain injury. Results of evaluation are placed in the EMR for his review. This is an 89-year-old male with prior history of coronary artery disease, CABG, and stroke, who is currently intubated and comatose. Review of his records states that he was with his family on September 28, 2016 riding in a car. He apparently seemed as if he went to sleep to the family. They eventual ly noticed labored breathing as if he was snoring. He was nonresponsive, so he was brought to the e mergency room. In the emergency room, it appears that he was noted to be pulseless with a non-perfu sing rhythm, so he received CPR and then was taken the director of cardiac cath lab as if he may have had an acute DC le ading to cardiac arrest and anoxic brain injury. He had return of spontaneous circulation. He has been placed in the ICU and placed on HACA protocol. He is currently intubated, paralyzed, and hypot hermic. His pupils currently are not reactive to light, but he is on a paralytic. He is not moving , nor responding to any commands. REVIEW OF SYSTEMS: Cannot be obtained due to patient's medical status. FAMILY HISTORY/SOCIAL HISTORY: Cannot be obtained due to patient's medical status. PAST MEDICAL HISTORY: Reported to be coronary artery disease, CABG, and stroke. MEDICATIONS ON ADMISSION: Noted to include Plavix, losartan, tamsulosin, Coumadin, and metoprolol. PHYSICAL EXAM: VITAL SIGNS: Blood pressure 106/34, heart rate 59, respirations 24. He is currentl y intubated and hypothermic. NEUROLOGIC: He is lying in bed, intubated and comatose. He does not r espond to any commands. His pupils are fixed and unresponsive to light. No evidence of withdrawal to pain in all 4 extremities. LABS: September 28, 2016: CBC with white blood cell count 10.16. September 29, 2016: LDL 47. IMAGING: September 28, 2016: A chest x-ray shows cardiomegaly, as well as an endotracheal tube present. I personally visualized the study. ASSESSMENT: Suspected myocardial infarction leading to cardiac arrest with loss of pulse with resul tant anoxic brain injury: It appears the patient likely had cardiac arrest from an DC and suffered significant anoxic brain injury. As the patient is currently on HACA protocol and paralyzed, I sharon ot get an adequate neurologic exam. If patient is rewarmed tomorrow and taken off paralytics, we sh ould have a good idea of prognosis. If his pupils remained fixed and unresponsive to light after be ing removed from HACA protocol though, I would suspect a very poor prognosis for significant neurolo gic recovery. However, at this time Neurology will continue to evaluate and wait for HACA protocol to end and rewarming to be completed tomorrow. This is a critically ill patient following severe anoxic brain injury from cardiac arrest. Neurolog y service will continue to follow closely. /[id number]/MODL
[2016-09-29 14:25] LABS: BASE EXCESS -14.2 mEq/L (-2.5-2.5); BICARBONATE 12 mEq/L (22-26); MEASURED OXYGEN SATURATION 92 % (92-95); PCO2 28 mmHg (34-38); PO2 72 mmHg (65-75); TCO2 13 mEq/L (23-27)
[2016-09-29 14:28] LABS: O2 CONCENTRATIION 60 % (0-100); P/F RATIO 120 RATIO; PATIENT RATE 26; PIP 31.7; PRESSURE SUPPORT 7; SIMV YES
[2016-09-29] MEDS ORDERED: SODIUM BICARBONATE 50 MEQ/50 ML SYR IVP ONE (14:43)
[2016-09-29] MEDS ORDERED: NA BICARBONATE 50 MEQ/50 ML VIAL IV ONE (16:00)
--- NOTE | 2016-09-29 16:43 | GHP ---
DATE OF ADMISSION: 09/28/2016 REFERRING PHYSICIAN: Charlie Rivera MD INDICATION: An 89-year-old man with resuscitated cardiac arrest. HISTORY OF PRESENT ILLNESS: History is obtained from the , the son, emergency room staff and old chart. The patient is intubated, and unresponsive , and unable to provide any history. There is coronary artery disease with previous bypass surgery. This was performed by Dr. Tai in 2006 with 3 saphenous vein grafts and 1 left internal mammary bypass graft. The patient apparently was asymptomatic prior to surgery, but had an abnormal calcium score , which ultimately led to angiography. I have reviewed these films from 2006, and the patient had very severe multivessel disease. For unclear reasons the patient had repeat catheterization by Dr. Tai in 2011. At that time, left internal mammary bypass graft was occluded, but the LAD was perfused via a patent saphenous vein graft. Saphenous vein graft to the circumflex was occluded, and the circumflex branch was filled from collaterals. Right coronary was totally occluded, but filled via a patent saphenous vein bypass graft. The patient otherwise had very severe diffuse disease, and no attempted intervention was made. The patient currently is followed by Dr. Franks and Dr. Prado. He apparently has been doing relatively well, able to ambulate. He has not had angina or significant dyspnea. On the night of admission, he was at the [facility] for dinner with his and son, who is visiting from [place]. He had no complaints that he verbalized. He was able to walk back to the car, and was in the backseat of the car. His family felt as though he was sleeping. When they arrived at their apartment approximately 10-15 minutes later, he was unarousable, and it was unclear to them if he was breathing. As the apartment is right down the street from [facility], he was brought directly to the Emergency Department. He apparently was found to be in pulseless electrical activity. CPR was begun. The patient was intubated and treated with advanced cardiac life support. This progress for approximately 30 minutes before return of spontaneous circulation. There was a period of intermittent asystole as well. The patient then had a 12-lead performed, demonstrating atrial fibrillation and anterior marked ST-segment elevation. At this point, the chemical lab supervisor and Cardiology were contacted. The patient had remained hemodynamically unstable, requiring high-dose Levophed and intermittent bolus epinephrine. Laboratory studies are pending. PAST MEDICAL HISTORY: Parkinson's disease, CVA status post previous cardiac catheterization, pulmonary embolism, paroxysmal atrial fibrillation, hypertension, hyperlipidemia, chronic renal insufficiency, history of carotid stenosis. CURRENT MEDICATIONS: The list is unclear. He has been on warfarin, but the family says this was discontinued fairly recently due to falls. He was then placed on Plavix. The list from the chart also states he is on Sinemet, Prolia , metoprolol, Flomax, as well as various supplements and vitamins. ALLERGIES: Statins and Zetia. SOCIAL HISTORY: He has not been a smoker or a heavy drinker. He lives with his at the [facility]. His son lives in [place] and is visiting. REVIEW OF SYSTEMS: Unobtainable. PHYSICAL EXAM: GENERAL: The patient is intubated. VITAL SIGNS: Blood pressure of 60 on Levophed and epinephrine, pulse rate is 100 and irregularly irregular. NECK: Jugular venous pressure appears to be elevated, although patient is flat. LUNGS: Breath sounds are coarse. CARDIAC: Irregularly irregular with a 1/6 systolic ejection murmur. NEURO: Pupils are fixed and dilated, and there is no response to painful stimuli. EXTREMITIES: There is no peripheral edema. LABORATORY DATA: EKG demonstrates atrial fibrillation with left ventricular hypertrophy and marked anterior ST-segment "tombstone" elevations. Chest x-ray shows cardiomegaly and pulmonary vascular congestion, with endotracheal tube in proper position, with hypoventilation and elevated right hemidiaphragm. Laboratory studies: Initial I-STAT laboratory studies demonstrate a creatinine of 1.9, CO2 of 16. Other laboratory studies are pending. IMPRESSION: 1. Resuscitated cardiac arrest with pulseless electrical activity and asystole. 2. Probable acute anterior wall myocardial infarction. 3. Coronary artery disease, status post bypass surgery with history of failed bypass grafts and severe yuhaaviatam coronary disease. I have reviewed previous films in detail. 4. Possible anoxic brain injury. 5. Hemodynamic instability. 6. History of cerebrovascular accident. 7. Chronic renal insufficiency. 8. History of pulmonary embolus. PLAN: Grave prognosis was discussed with the family, and they are understanding. Plan for now will be to go to cardiac catheterization for possible acute percutaneous intervention and other stabilizing measures. Hypothermia protocol will be initiated. Pulmonary critical care and neurology consults will be obtained. The patient's prognosis is quite poor. /[id number]/MODL MTDD
[2016-09-29 17:41] LABS: MAGNESIUM 1.6 mg/dL (1.6-2.3); POTASSIUM 3.4 mEq/L (3.5-5.2)
[2016-09-29] MEDS ORDERED: INSULIN REGULAR HUMAN 100 UNIT/ML ONE (17:41)
[2016-09-29] MEDS ORDERED: MAGNESIUM SULF 1 GM/DEXTROSE 100 ML IV ONE (17:45)
[2016-09-29] MEDS ORDERED: INSULIN REGULAR HUMAN 100 UNIT/ML IV PRN (17:53)
[2016-09-29 18:32] LABS: CK-MB INTERPRETATION POSITIVE (NEGATIVE)
[2016-09-30] MEDS: INSULIN REGULAR HUMAN 100 UNIT in NS 100 ML IV SCH ×4 (00:05→08:41)
[2016-09-30 01:01] LABS: BASE EXCESS -11.7 mEq/L (-2.5-2.5); BICARBONATE 14 mEq/L (22-26); IONIZED CALCIUM 0.96 MMOL/L (1.12-1.30); MEASURED OXYGEN SATURATION 94 % (92-95); PCO2 29 mmHg (34-38); PO2 58 mmHg (65-75); TCO2 15 mEq/L (23-27)
[2016-09-30 01:03] LABS: END TIDAL CO2 18; O2 CONCENTRATIION 80 % (0-100); P/F RATIO 73 RATIO; PATIENT RATE 26; PRESSURE SUPPORT 7; SIMV YES
[2016-09-30 01:21] LABS: % IMMATURE GRANULYOCYTES 0.4 % (0.0-1.1); ABSOLUTE IMMATURE GRANULOCYTES 0.03 10^3/uL (0.00-0.10); ADD DIFF? NO; ADD MORPH? NO; ADD SCAN? YES; ATYPICAL LYMPHOCYTE FLAG 0 (0-99); FRAGMENT RBC FLAG 0 (0-99); HEMATOCRIT 33.3 % (40.0-51.0); HEMOGLOBIN 10.9 g/dL (13.7-17.5); LIPEMIA HEMOLYSIS FLAG 80 (0-99); MEAN CELL HEMOGLOBIN 28.2 pg (27.9-34.1); MEAN CELL HEMOGLOBIN CONCENTR. 32.7 g/dL (32.4-36.7); MEAN CELL VOLUME 86.3 fL (81.5-99.8); MEAN PLATELET VOLUME 9.5 fL (8.7-11.7); PLATELET CLUMPS FLAG 10 (0-99); PLATELET COUNT 151 10^3/uL (150-400); RED BLOOD CELL COUNT 3.86 10^6/uL (4.40-6.38); RED CELL DISTRIBUTION WIDTH 15.6 % (11.5-15.2)
[2016-09-30 01:28] LABS: INR 1.74 (0.83-1.16); PROTIME(PATIENT) 20.4 SEC (12.0-15.0)
[2016-09-30 01:29] LABS: APTT 49.6 SEC (23.0-38.0)
[2016-09-30 01:32] LABS: ALBUMIN 2.5 g/dL (3.5-5.0); ANION GAP 20 mEq/L (8-16); ASPARTATE AMINOTRANSFERASE 219 IU/L (17-59); CALCIUM 6.5 mg/dL (8.5-10.4); CARBON DIOXIDE 15 mEq/l (22-31); CHLORIDE 94 mEq/L (97-110); CREATININE 1.9 mg/dL (0.7-1.3); GLOMERULAR FILTRATION RATE 34; GLUCOSE 360 mg/dL (70-100); MAGNESIUM 1.8 mg/dL (1.6-2.3); POTASSIUM 4.3 mEq/L (3.5-5.2); SODIUM 129 mEq/L (134-144)
[2016-09-30 01:36] LABS: LEFT SHIFT FLG 150 (0-99)
[2016-09-30 01:44] LABS: CK-MB INTERPRETATION POSITIVE (NEGATIVE)
[2016-09-30] MEDS ORDERED: PROTOCOL K PHOSPHATE 1 DOSE IV PRN (01:44)
[2016-09-30] MEDS ORDERED: PROTOCOL CALCIUM 1 DOSE IV PRN (01:44)
[2016-09-30] MEDS ORDERED: SODIUM BICARBONATE 50 MEQ/50 ML SYR IVP ONE (02:00)
[2016-09-30 02:38] LABS: SCAN POSITIVE
[2016-09-30] MEDS ORDERED: FUROSEMIDE 20 MG/2 ML VIAL ONE ×2 (02:38→15:52)
[2016-09-30 02:57] LABS: ELLIPTOCYTES 1+; PLATELET ESTIMATE ADEQUATE (ADEQ); SCHISTOCYTES 1+
[2016-09-30 05:11] LABS: BASE EXCESS -8.2 mEq/L (-2.5-2.5); BICARBONATE 17 mEq/L (22-26); MEASURED OXYGEN SATURATION 95 % (92-95); PCO2 31 mmHg (34-38); PO2 65 mmHg (65-75); TCO2 18 mEq/L (23-27)
[2016-09-30 05:12] LABS: SIMV YES
[2016-09-30 05:13] LABS: END TIDAL CO2 19; O2 CONCENTRATIION 80 % (0-100); P/F RATIO 81 RATIO; PATIENT RATE 26; PRESSURE SUPPORT 7
[2016-09-30 05:34] LABS: MAGNESIUM 2.1 mg/dL (1.6-2.3); POTASSIUM 4.8 mEq/L (3.5-5.2)
[2016-09-30] MEDS: NOREPINEPHRINE BITARTRATE 4 MG in D5W 500 ML IV PRN (06:31)
--- NOTE | 2016-09-30 07:49 | NEUROPROG ---
Assessment: Chart reviewed Patient still hypothermic, paralyzed and on sedative infusions. Ideally neurologic prognostication would occur 72 hours after rewarming and cessation of paralytics/sedatives - may need even longer to assess motor function given continuous paralytic infusion and shock liver/CKD. Please reconsult at that time, sooner if any other neurologic issues emerge. No charges rendered. Objective: Vital Signs Temp Pulse Resp BP Pulse Ox 34 C L 65 26 H 96/32 L 93 09/30/16 07:00 09/30/16 07:00 09/30/16 07:00 09/30/16 07:00 09/30/16 07:00 Laboratory Results 09/30/16 00:45 09/30/16 05:05 09/29/16 09/30/16 10/01/16 05:59 05:59 05:59 Intake Total 1170 8751.6 Output Total 1200 980 Balance -30 7771.6 PT 20.4 SEC (12.0-15.0) H 09/30/16 00:45 INR 1.74 (0.83-1.16) H 09/30/16 00:45 Allergies/Adverse Reactions: ezetimibe [From Zetia] Allergy (Verified 02/24/14 20:01) affected liver Klqiump-Qho-Epy Reductase Inhibitor Allergy (Verified 02/24/14 20:01) aching muscles
[2016-09-30 08:46] LABS: MAGNESIUM 1.9 mg/dL (1.6-2.3); POTASSIUM 4.2 mEq/L (3.5-5.2)
--- NOTE | 2016-09-30 08:48 | CPEKG ---
Heart Rate: 65 RR Interval: 923 P-R Interval: 212 QRSD Interval: 98 QT Interval: 548 QTC Interval: 570 P [place]: 70 QRS [place]: -29 T Wave [place]: 31 EKG Severity - ABNORMAL ECG - EKG Impression: SINUS RHYTHM EKG Impression: BORDERLINE LEFT AXIS DEVIATION EKG Impression: PROLONGED QT INTERVAL Preliminary Awaiting MD Review
[2016-09-30] MEDS ORDERED: RN MUST REMOVE K+ & MG+ PROTOCOL FROM WORKLIST AT 36 C MISC SCH (09:00)
[2016-09-30] MEDS ORDERED: CLOPIDOGREL BISULFATE 75 MG TAB TUBE SCH (09:00)
[2016-09-30] MEDS ORDERED: MAINTAIN PARALYTIC,ANALGESIA,SEDATION UNTIL TEMP IS 36C MISC SCH (09:00)
[2016-09-30] MEDS ORDERED: RN MUST ADD CA+ & PHOS PROTOCOL TO WORKLIST AT 36 C MISC SCH (09:00)
[2016-09-30 09:28] LABS: CK-MB INTERPRETATION POSITIVE (NEGATIVE)
--- NOTE | 2016-09-30 10:14 | PDCARPN ---
Cardiology Progress Note Assessment/Plan: HPI: Romero is an 89 year old man with a history of coronary artery disease s/p CABG with rSVG x 3 and BECKFORD to the LAD in 2006. He also had repeat cardiac catheterization in 2011 which revealed an occluded BECKFORD, rSVG to the left circumflex, RCA. However, the rSVG to the RCA was patent and the circumflex was filled with collaterals and intervention was not performed at this time as it would have been very high risk. The patient also has a past medical history notable for CVA s/p previous cardiac catheterization, PE, paroxysmal atrial fibrillation, hypertension, hyperlipidemia, chronic renal insufficiency and history of carotid artery stenosis. Romero presented to the emergency department with PEA and intermittent asystole with marked ST elevation in anterior leads. He had return of spontaneous circulation following CPR and ACLS and was taken urgently to the catheterization laboratory where 3 overlapping drug eluting stents were placed in an occluded LAD. Intraaortic balloon pump was placed and the HACA protocol was initiated. Assessment: 1. S/p [id number] cardiac arrest with acute myocardial infarction due to vein graft failure of the SVG to the LAD reopened with drug eluting stents x 3. Beta blockers and abel inhibitors on hold due to hypotensive. Will start when patient can tolerate. 2. HACA protocol: We will continue active rewarming at the present time and further assessment of neurologic status. As the patient is rewarmed the risk of bleeding will be lower and full-dose anticoagulation may be required if the IABP is to remain in place. 3. Cariogenic shock currently on multiple pressors 4. Intraaortic balloon pump in place current 1:1 assist 5. Acute respiratory failure with pulmonary edema 6. Stable H&H 7. Platelet count decreased, probably due to antiplatelet therapy and IABP. Monitor closely. 8. PAF, currently in sinus rhythm on Amiodarone drip. I discussed with the family that the patient's prognosis is guarded at the present time. We will continue pressors and other support at the present time until further neurologic assessment is feasible. Subjective: intubated, sedated Reviewed/Discussed With: family, hospitalist, multidisciplinary team Time Spent With Patient: 15 minutes discussing care with the family Objective: Vital Signs (8 Hrs) Temp Pulse Resp BP Pulse Ox 09/30/16 09:00 34.3 C L 65 26 H 109/34 L 93 09/30/16 08:05 62 61 H 112/42 L 93 09/30/16 08:00 34.2 C L 64 26 H 108/70 92 09/30/16 07:00 34 C L 65 26 H 96/32 L 93 09/30/16 06:00 33.8 C L 61 26 H 106/38 L 97 09/30/16 05:00 33.6 C L 58 L 26 H 93/34 L 98 09/30/16 04:00 33.4 C L 63 26 H 98/34 L 96 09/30/16 03:00 33.2 C L 62 26 H 106/36 L 99 Intake/Output (24 Hrs) 09/29/16 09/30/16 10/01/16 05:59 05:59 05:59 Intake Total 1170 8751.6 Output Total 1200 980 Balance -30 7771.6 Intake: Oral (ml) 0 IV Intake (ml) 1170 1356 IV Infused (ml) 7395.6 Amiodarone HCl 200 ml @ 710 33.333 mls/hr IV CONT FEDE Rx#:[id number] EPINEPHrine 1 mg In D5w 1384 250 ml @ Titrate IV CONT FEDE Rx#:[id number] Insulin Regular Human 100 628 unit In Ns 100 ml @ As Directed IV AD FEDE Rx#: [id number] Norepinephrine Bitartrate 1657 4 mg In D5w 500 ml @ Per Protocol IV CONT PRN Rx# :[id number] Propofol/Emulsion 100 ml 81.3 @ Per Protocol IV CONT FEDE Rx#:[id number] Sodium Bicarbonate 150 2819 meq In D5w 1,000 ml @ 100 mls/hr IV CONT FEDE Rx#: [id number] Vecuronium [place] 50 mg 68.5 In D5w 50 ml @ Per Protocol IV CONT FEDE Rx#: [id number] fentaNYL 1,000 mcg In Ns 47.8 100 ml @ Per Protocol IV CONT FEDE Rx#:[id number] Output: Urine (ml) 1200 270 Catheter 1200 270 OG Drainage (ml) 710 Large Bore (>12 Salv[place]) 710 Other: Weight 65 kg 75.4 kg Result Diagrams: 09/30/16 12:15 09/30/16 12:15 Cardiac Labs: Cardiac Lab Results (72 Hrs) 09/30/16 09/30/1617 08:15 00:45 17:10 CK-MB (CK-2) Fraction 41.40 H 44.10 H 52.60 H Troponin I 2.080 H 2.370 H 3.710 H 09/29/16 09/29/16 12:00 01:45 CK-MB (CK-2) Fraction 51.70 H 29.10 H Troponin I 4.330 H 1.420 H - Physical Exam Constitutional: other (sedated, intubated) ICD10 Worksheet Patient Problems: Problems Problem Status Onset CVA - cerebrovascular accident due to cerebral artery occlusion Active CAD - Coronary arteriosclerosis Active Atrial fibrillation and flutter Active Benign hypertension Active Left acetabular fracture Acute Cardiac arrest Acute STEMI (ST elevation myocardial infarction) Acute
--- NOTE | 2016-09-30 11:22 | PDINTPN ---
Sew On Operator Progress Note Assessment/Plan: Assessment: Status post [id number] cardiac arrest with prolonged resuscitation HACA protocol: Rewarming in progress. Still on vecuronium until temperature comes up. On propofol and fentanyl as well. Cardiogenic shock: On multiple pressors, prognosis guarded Acute respiratory failure with pulmonary edema Discussed with the patient's son and . We will wait until full rewarming occurs and then make decisions from there. I anticipate that this is not going to be a survival of vent. Withdrawal of care may be indicated. Plan: Continue supportive care to per the HACA protocol. Continue pressors and bicarbonates. Wean vecuronium once the patient has been really warmed. Electrolyte replacement per protocols. Follow clinical and neurologic status. 45 minutes of critical care time spent directly with the patient this morning. Discussed with the patient's family, nursing, respiratory, and the ICU multi disciplinary team. Addendum: Approximately 4:30PM the patient became more hypoxemic, bradycardic and hypotensive. His son and are at his bedside and request nothing further be done. Intra-aortic balloon pump was stopped, supportive drips have been stopped. They request that the patient be extubated and allow natural . Subjective: Unresponsive, on the ventilator with pulmonary edema in his endotracheal tube. On multiple pressors, bicarbonate, vecuronium, propofol, and fentanyl Objective: Vital Signs Temp Pulse Resp BP Pulse Ox 34.7 C L 66 26 H 109/36 L 91 L 09/30/16 11:00 09/30/16 11:00 09/30/16 11:00 09/30/16 11:00 09/30/16 11:00 Laboratory Results 09/30/16 00:45 09/30/16 08:15 09/29/16 09/30/16 10/01/16 05:59 05:59 05:59 Intake Total 1170 8751.6 Output Total 1200 980 Balance -30 7771.6 PT 20.4 SEC (12.0-15.0) H 09/30/16 00:45 INR 1.74 (0.83-1.16) H 09/30/16 00:45 Laboratory Tests 09/30/16 09/30/16 09/30/16 05:05 06:03 08:15 PT INR APTT pCO2 31 L pO2 65 Total CO2 18 L ABG pH 7.34 L ABG O2 Saturation 95 O2 Concentration % 80 Actual Respiration Rate 26 SIMV YES Tidal Volume 600 PEEP 5 Pressure Support 7 POC Sodium POC Potassium POC Chloride Bicarbonate 17 L POC BUN POC Creatinine POC Glucose 201 H Magnesium Creatine Kinase 584 H CK-MB (CK-2) Fraction 41.40 H CK-MB (CK-2) % 7.1 H Creatine Kinase Interp POSITIVE H Troponin I 2.080 H CXR: Bilateral pulmonary infiltrates, worse on the left, slightly better at the right base. Lines and tubes in good position. Physical Exam - Physical Exam General Appearance: unresponsive, other (On ventilator, rewarming with a temperature of approximately 35 degrees currently) EENT: ET tube (With bloody frothy secretions consistent with severe pulmonary edema), other (NG tube in place), No PERRL/EOMI (Pupils fixed, approximately 4 mm) Neck: normal inspection (Jugular venous pressure elevated) Respiratory: decreased breath sounds, rales, rhonchi, No lungs clear, No normal breath sounds Cardiac/Chest: regular rate, rhythm, other (Distant heart tones) Abdomen: distended, No normal bowel sounds (Absent currently) Male Genitalia: other (Deal catheter in place: Input over 7 L greater than output last 24 hours) Skin: warm/dry, mottled, pallor, No normal color Extremities: pedal edema (Trace +) Neuro/Psych: cognition abnormalities (Can't assess), No no motor/sensory deficits (Can't assess) ICD10 Worksheet Patient Problems: Problems Problem Status Onset CVA - cerebrovascular accident due to cerebral artery occlusion Active CAD - Coronary arteriosclerosis Active Atrial fibrillation and flutter Active Benign hypertension Active Left acetabular fracture Acute Cardiac arrest Acute STEMI (ST elevation myocardial infarction) Acute
[2016-09-30] MEDS: AMIODARONE HCL 200 ML IV SCH (11:50)
[2016-09-30] MEDS ORDERED: K PHOS 15 MMOL in D5W 250 ML IV ONE (12:00)
[2016-09-30 12:25] LABS: BASE EXCESS -5.6 mEq/L (-2.5-2.5); BICARBONATE 20 mEq/L (22-26); IONIZED CALCIUM 0.88 MMOL/L (1.12-1.30); MEASURED OXYGEN SATURATION 91 % (92-95); PCO2 43 mmHg (34-38); PO2 62 mmHg (65-75); TCO2 22 mEq/L (23-27)
[2016-09-30 12:29] LABS: ADD SCAN? YES; ATYPICAL LYMPHOCYTE FLAG 0 (0-99); FRAGMENT RBC FLAG 0 (0-99); HEMATOCRIT 33.7 % (40.0-51.0); HEMOGLOBIN 11.3 g/dL (13.7-17.5); LIPEMIA HEMOLYSIS FLAG 80 (0-99); MEAN CELL HEMOGLOBIN CONCENTR. 33.5 g/dL (32.4-36.7); MEAN CELL VOLUME 83.6 fL (81.5-99.8); MEAN PLATELET VOLUME 9.2 fL (8.7-11.7); PATIENT RATE 26; PLATELET CLUMPS FLAG 0 (0-99); PLATELET COUNT 123 10^3/uL (150-400); PRESSURE SUPPORT 7; RED BLOOD CELL COUNT 4.03 10^6/uL (4.40-6.38); RED CELL DISTRIBUTION WIDTH 15.5 % (11.5-15.2); SIMV YES
[2016-09-30 12:30] LABS: END TIDAL CO2 26; O2 CONCENTRATIION 90 % (0-100); P/F RATIO 69 RATIO; PIP 59.4
[2016-09-30 12:33] LABS: LEFT SHIFT FLG 300 (0-99)
[2016-09-30 12:45] LABS: ALBUMIN 2.1 g/dL (3.5-5.0); ANION GAP 14 mEq/L (8-16); ASPARTATE AMINOTRANSFERASE 162 IU/L (17-59); CARBON DIOXIDE 21 mEq/l (22-31); CHLORIDE 91 mEq/L (97-110); CREATININE 1.9 mg/dL (0.7-1.3); GLOMERULAR FILTRATION RATE 34; GLUCOSE 146 mg/dL (70-100); MAGNESIUM 1.8 mg/dL (1.6-2.3); POTASSIUM 4.3 mEq/L (3.5-5.2); SODIUM 126 mEq/L (134-144)
[2016-09-30 12:56] LABS: CALCIUM 5.8 mg/dL (8.5-10.4)
[2016-09-30 13:02] LABS: ADD DIFF? YES
[2016-09-30 13:06] LABS: SCAN POSITIVE
[2016-09-30 13:12] LABS: INR 1.86 (0.83-1.16); PROTIME(PATIENT) 21.5 SEC (12.0-15.0)
[2016-09-30 13:13] LABS: APTT 43.6 SEC (23.0-38.0)
[2016-09-30 13:16] LABS: PLATELET ESTIMATE DECREASED (ADEQ)
[2016-09-30] MEDS ORDERED: CALCIUM GLUCONATE 2 GM in NS 50 ML IV ONE (13:16)
[2016-09-30 13:17] LABS: HYPOCHROMIA 1+; MICROCYTES 1+
--- NOTE | 2016-09-30 14:32 | CPEKG ---
Heart Rate: 81 RR Interval: 741 QRSD Interval: 106 QT Interval: 436 QTC Interval: 506 QRS [place]: -53 T Wave [place]: 85 EKG Severity - ABNORMAL ECG - EKG Impression: ATRIAL FIBRILLATION EKG Impression: INCOMPLETE RBBB AND LAFB EKG Impression: PROLONGED QT INTERVAL Preliminary Awaiting MD Review
[2016-09-30 16:03] VITALS: BP 94/34; TEMP 96.3
[2016-09-30] MEDS ORDERED: FUROSEMIDE 20 MG/2 ML VIAL IV ONE (16:30)
[2016-09-30 16:34] VITALS: PULSE 36; RESP 30; O2SAT 72
== END 2016-09-30 22:02 | disposition expired | DRG 270 ==
LOC: F2N 23:58
PROVIDERS: ADMIT Internal Medicine Interventional Cardiology; ATTEND Internal Medicine Interventional Cardiology
DX: I21.4 Non-ST elevation (NSTEMI) myocardial infarction (principal); I25.810 Atherosclerosis of coronary artery bypass graft(s) without angina pectoris; I46.9 Cardiac arrest, cause unspecified; J96.00 Acute respiratory failure, unspecified whether with hypoxia or hypercapnia; E87.2 Acidosis; E87.6 Hypokalemia; G20 Parkinson's disease; I48.0 Paroxysmal atrial fibrillation; I10 Essential (primary) hypertension; E78.5 Hyperlipidemia, unspecified; Z86.73 Personal history of transient ischemic attack (TIA), and cerebral infarction without residual deficits; Z95.1 Presence of aortocoronary bypass graft
CPT/HCPCS: 80307; 82947-QW; 86870-90; 96374; C1769; C1874; C1887; C9606; G0480; J0171; J0282; J0461; J0583; J0610; J1644; J1815; J2250; J2704; J3010; J3475; Q9967